=== PATIENT | male | born 1970 | race Caucasian/White ===

== ENCOUNTER 2021-01-30 06:10 | Day surgery (SDC) | payer BC, OTHER, SELFPAY ==
[2021-01-23 10:40] VITALS: BMI 33.5
[2021-01-30] VITALS (9 sets, daily range): BP systolic 110–156; BP diastolic 53–98; PULSE 80–92; RESP 16–95; TEMP 36.2–36.7; O2SAT 93–99
[2021-01-30 06:42] LABS: POC Glucose,Bedside 149 (70-110)
--- NOTE | 2021-01-30 07:01 | P.PN_ITS ---
[facility] Anesthesia Checklist - Patient Identification Patient Identification: Arm Band, Verbal (Name & ) - Structural Data Admitted From: Home Planned Operative Procedure/s: ex. nasal lesion Consent for Planned Operative Procedure(s) Verified: Yes Verified Documents: History and Physical - NPO Status Verified Time NPO: 00:00 - Additional verifications Patient : No Anesthesia Reactions: No Hx Blood Transfusions: No Blood Transfusion Reaction: No Cephalosporin Allergy: No Previous Colonoscopy: Yes - Cardiovascular Assessment Heart Sounds: S1 & S2 Pulse Strength: Baseline Pulse Rhythm: Regular Peripheral Edema: No - Airway Assessment C-Spine Mobility Assessed: Yes TMJ Mobility Assessed: Yes Dentition: Good Dentition - Neurological Assessment Level of Consciousness: Awake, Alert, Appropriate Hx Seizures: No Numbness or tingling in extremities: No - Anesthesia Plan Anesthesia Risk discussed: Yes Anesthesia Plan: Verified ASA Class: III Anesthesia Type: MAC [facility] History I have reviewed the patient's past medical history: Yes Medical History: Reports:: Diabetes Mellitus Type 2, MRSA (right back) Denies:: Cancer, Diabetes Mellitus Type 1, Internal Pacemaker, Seizures *Have you ever received a pneumonia vaccine?: No *Have you received a flu vaccine this season?: No Other Medical History: Denies: Blood Transfusion Reaction Anesthesia experience/problems:: none Other Surgeries: Yes: Colonoscopy, Other. No: Pacemaker Amputation: No Fractures: No - *Social History Last grade of school completed: Some college Smoking Status: Current every day smoker Tobacco Type: cigarettes # Packs/Day (cigarettes): 1 Alcohol Intake: current Alcohol Intake Frequency:: holidays/special occasions only Substance Use Type: denies use *Occupational Status:: employed Housing: house *Travel in the last 8 weeks: None Family Hx:: Coronary Artery Disease, Diabetes
--- NOTE | 2021-01-30 07:18 | SUR.PREOP ---
0714 DIRECTED BY Ivette CROWE REMOTE PILOT OPERATOR TO GIVE DECADRON AT THIS TIME. 0715 ALLERGIES AND IDENTITY VERFIEID. DECADRON 10MG IV GIVEN PER ORDER. PT TOLERATED WELL.
--- NOTE | 2021-01-30 07:21 | SUR.PREOP ---
0714 PT HAD PREOP EKG PERFORMED AT ANOTHER FACILITY, UNABLE TO GET COPY. NOTIFIED ANESTHESIA STAFF AND VERIFIED WITH Ivette CROWE DOOR TO DOOR SELLING AGENT DIDN'T NEED ANOTHER EKG TODAY BEFORE PROCEDURE.
--- NOTE | 2021-01-30 08:37 | P.PN_ITS ---
[facility] Anesthesia Record Part I Intake, IV Amount: 600 Estimated blood loss (mL): 5 Urine output (mL): 0 Blood Pressure: 144/98 SaO2: 93 Pulse Rate: 88 Respiratory Rate: 16 Temperature: 98.1 F Patient is:: Drowsy, Stable Stable to PACU at:: 08:35
[2021-01-30 08:44] LABS: POC Glucose,Bedside 132 (70-110)
--- NOTE | 2021-01-30 08:46 | HMH.OPNOTE ---
Date of procedure: 01/30/21 Pre-op Diagnosis:: 1. 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 A cottonoid was placed in the left nasal fossa and the perilesional area which involve the floor of the left nasal vestibule extending a little laterally and measuring 1.8 cm was infiltrated with 2% lidocaine containing epinephrine. The lesion was excised and submitted it measured 1.8 cm in length and 3 cm in width. Bleeding was less than 2 cc and stopped with bipolar cautery. The defect was repaired with 2-0 chromic and bacitracin ointment was placed over the repair. The patient tolerated the procedure well and was sent to recovery in good general condition. All of the bleeding was stopped a dressing was applied over the nostril. Condition: stable Disposition: PACU Complications:: none
--- NOTE | 2021-01-31 14:00 | P.PN_ITS ---
[facility] Anesthesia Record Part II Discharge Time: 09:15 Destination: Surgical Day Care (OP Surgery) PACU nurse assessment reviewed?: Yes Patient Condition:: Good Anesthesia Complications:: None Swallowing reflex intact?: Yes Cyanosis?: No Blood Pressure: 127/74 Pulse Rate: 84 Temperature: 98.1 F Mental Status: Alert & Oriented Pain level:: 0 Nausea and/or vomitting:: None Intake, IV Amount: 0
[2021-01-31 14:01] VITALS: BP 127/74; PULSE 84; TEMP 36.7
== END 2021-01-30 09:54 | disposition home or self-care (01) ==
PROVIDERS: PCP Otolaryngology; Visit Provider Otolaryngology
PROC: (CPT 30118; principal; 2021-01-30 07:30)
DX: C30.0 Malignant neoplasm of nasal cavity (principal); E11.9 Type 2 diabetes mellitus without complications; Z86.14 Personal history of Methicillin resistant Staphylococcus aureus infection; Z72.0 Tobacco use; Z82.49 Family history of ischemic heart disease and other diseases of the circulatory system; Z83.3 Family history of diabetes mellitus; Z79.84 Long term (current) use of oral hypoglycemic drugs; Z79.899 Other long term (current) drug therapy
CPT/HCPCS: 30118; 82962; 96374; 96375; J2405